=== PATIENT | male | born 1990 | race Asian ===

== ENCOUNTER 2020-07-04 10:22 | Day surgery (SDC) | payer OTHER ==
[2020-06-27 13:35] VITALS: BMI 30.7
[2020-07-04] MEDS ORDERED: ROPIVACAINE HCL 0.5% 30ML VIAL ONE (11:27)
[2020-07-04] MEDS ORDERED: MIDAZOLAM HCL 2 MG/2 ML SINGLE DOSE VIAL ONE ×2 (11:27→11:38)
[2020-07-04] MEDS ORDERED: PROPOFOL 20 ML ONE (11:38)
[2020-07-04] MEDS ORDERED: ONDANSETRON 4 MG/2 ML VIAL ONE (11:38)
[2020-07-04] MEDS ORDERED: LIDOCAINE HCL/PF 2% SDV 5ML VIAL ONE (11:38)
[2020-07-04] MEDS ORDERED: DEXAMETHASONE SOD PHOSPHATE 4 MG/1 ML VIAL ONE (11:38)
[2020-07-04] MEDS ORDERED: BUPIVACAINE HCL/PF 2.5 MG/ML - 30 ML VIAL IJ ONE (11:56)
[2020-07-04] MEDS ORDERED: ceFAZolin SODIUM 1 GM VIAL ONE (12:30)
[2020-07-04 14:34] VITALS: TEMP 98.2
[2020-07-04 15:15] VITALS: BP 128/71; PULSE 74
[2020-07-04] MEDS ORDERED: ONDANSETRON 4 MG/2 ML VIAL IVPUSH PRN (15:20)
[2020-07-04] MEDS ORDERED: oxyCODONE HCL 5 MG TABLET PO PRN ×2 (15:20)
[2020-07-04] MEDS ORDERED: LACTATED RINGERS SOLUTION 1,000 ML IV SCH (15:30)
--- NOTE | 2020-07-04 17:26 | OP ---
DATE OF OPERATION: 07/04/2020 PREOPERATIVE DIAGNOSIS: Left scaphoid nonunion. POSTOPERATIVE DIAGNOSIS: Left scaphoid nonunion. OPERATIVE PROCEDURE: Repair of left scaphoid nonunion with internal fixation and autograft bone grafting. SURGEON: Johny Cavanaugh MD ERGONOMIC SPECIALIST: SHIRLEY Prieto ANESTHESIA: Regional. COMPLICATIONS: None. ESTIMATED BLOOD LOSS: Minimal. INDICATION FOR PROCEDURE: The patient is a 30-year-old male with the above finding, indicated for operative treatment. Risks, benefits and alternatives were discussed with him at length. Proper informed consent was obtained. PROCEDURE: After proper identification of patient and correct operative site patient was brought to the operating room and placed on the operating table, all prominences well padded. Regional anesthesia had been given by the anesthesiologist and combined with some sedation this was adequate for procedure. Intravenous antibiotics were given. Timeout procedure was performed. Left upper extremity was prepped and draped in the usual sterile fashion with a well-padded tourniquet placed over the sterile prep. Esmarch bandage to exsanguinate the left upper extremity. Tourniquet was inflated to 250 mmHg. A hockey stick incision was made over the flexor carpi radialis tendon and the scaphoid tubercle. Incision was taken sharply through the skin, with blunt and sharp dissection through the subcutaneous tissues. Wrist capsule was divided longitudinally and the scaphoid nonunion site was identified with a severe humpback deformity. Fibrous tissue was excised from the nonunion site, and the bone was debrided down to healthy cancellous bleeding bone in both poles of the scaphoid. There was no evidence of avascular necrosis. Once this was accomplished the incision was extended proximally and the pronator quadratus was divided and a window in the distal radius was made using a small drill and osteotomes, and corticocancellous bone graft was harvested. Attention was then returned to the nonunion and an Arthrex mini headless compression screw guidewire was placed from a [id number] direction across the nonunion site. Clinically this had excellent alignment as did the radiographs. A 2nd guidewire was placed to hold for rotational malalignment while we were drilling. The guidewire was then overdrilled and replaced with an Arthrex mini headless compression screw in a noncompressive mode with bone graft packed into the nonunion site. Once this was accomplished the 2nd guidewire was removed and final x-rays were taken, confirmed proper alignment of the nonunion as well as placement of bone grafting and hardware. Wound was repaired including the wrist capsule using 3-0 Vicryl, 4-0 Vicryl and nylon. Sterile dressings and a splint were placed. Patient was reversed from anesthesia, brought to the recovery room in stable condition. He tolerated the procedure well. Martin Plata, the law office assistant, was necessary throughout the procedure especially during positioning of the screw and holding reduction and holding bone graft in place while the screw was placed and this could not have been done without a skilled operative law office assistant. Shanti [id number]
== END 2020-07-04 15:10 | disposition home or self-care (01) ==
LOC: FASU 10:22
PROVIDERS: ATTEND Orthopaedic Surgery Hand Surgery
PROC: 0PUN07Z Supplement Left Carpal with Autologous Tissue Substitute, Open Approach (ICD-10-PCS; 2020-07-04)
PROC: 0PSN04Z Reposition Left Carpal with Internal Fixation Device, Open Approach (ICD-10-PCS; principal; 2020-07-04 12:33)
DX: S62.025A Nondisplaced fracture of middle third of navicular [scaphoid] bone of left wrist, initial encounter for closed fracture (principal); X58.XXXA Exposure to other specified factors, initial encounter; Y93.9 Activity, unspecified; Y92.9 Unspecified place or not applicable
CPT/HCPCS: 73110-TC-LT-FY